=== PATIENT | male | born 1965 | race Caucasian/White ===

== ENCOUNTER 2016-10-30 16:07 | Emergency (ER) | payer OTHER ==
[2016-10-30] MEDS ORDERED: Ketorolac 60 MG/2 ML SDV IM ONE (16:37)
--- NOTE | 2016-10-30 16:42 | EDM.PDOC ---
ED HPI GENERAL MEDICAL PROBLEM - General Chief Complaint: Back Pain or Injury Stated Complaint: PT FELL AT WORK AND HURT BACK Time Seen by Provider: 10/30/16 16:32 - History of Present Illness INITIAL COMMENTS - FREE TEXT/NARRATIVE: HISTORY AND PHYSICAL: History of present illness: The patient is a 51-year-old male who presents with complaints of pain to his right thoracic and lumbar back area after she sustained a fall today at work. According to the patient he was about 10 feet in the air on some scaffolding and he lost his footing and fell down into an area of cement blocks impacting the blocks. The patient did not pass out or blackout and has no head or neck pain but complains of pain to the right of the midline in the thoracic and lumbar area and the lower right ribs. He is not short of breath and has no abdominal complaints he has no hip or pelvis pain and has not been nauseated or vomited. He has no extremity complaints and no weakness or tingling in any of his extremities. Patient did not take anything for pain before coming here. He also says he scraped his right elbow but it is not particularly painful. Review of systems: As per history of present illness and below otherwise all systems reviewed and negative. Past medical history: As per history of present illness and as reviewed below otherwise noncontributory. Surgical history: As per history of present illness and as reviewed below otherwise noncontributory. Social history: No reported history of drug or alcohol abuse. Family history: As per history of present illness and as reviewed below otherwise noncontributory. Physical exam: Gen.: Well-developed well-nourished man who is nontoxic and ambulated into the ED without distress HEENT: Atraumatic, normocephalic, pupils reactive, negative for conjunctival pallor or scleral icterus, mucous membranes moist, throat clear, neck supple, nontender, trachea midline. There are no midline step-offs in his defects of the cervical spine Lungs: Clear to auscultation, breath sounds equal bilaterally, chest nontender. No worker breathing or sensory muscle use Heart: S1S2, regular rate and rhythm no overt murmurs Abdomen: Soft, nondistended, nontender. NABS Negative for costovertebral tenderness. Pelvis: Stable nontender. Genitourinary: Deferred. Rectal: Deferred. Extremities: Atraumatic with full range of motion without any bony defects, there is a superficial abrasion to the right elbow without soft tissue swelling tenderness or defects, negative for cords or calf pain. Neurovascular unremarkable. Neuro: Awake, alert, oriented. Cranial nerves II through XII unremarkable. Cerebellum unremarkable. Motor and sensory unremarkable throughout. Exam nonfocal. Back: There are no midline step-offs in his defects of the thoracic or lumbar spine but just to the right of the midline and there is discrete tenderness in the lower thoracic and upper lumbar spine and paraspinal area without any ecchymosis abrasions or soft tissue swelling. There is also some mild tenderness in the posterior lower ribs on the right without crepitus defects or deformities. There is no posterior pelvis tenderness Diagnostics: UA right ribs x-ray with chest, the CT of the thoracic and lumbar spine Therapeutics: Toradol Impression: Fall with right thoracic and lumbar back contusion Definitive disposition and diagnosis as appropriate pending reevaluation and review of above. lower back Pain Score (Numeric/FACES): 10 - Related Data Allergies Allergy/AdvReac Type Severity Reaction Status Date / Time No Known Allergies Allergy Verified 10/30/16 16:30 Home Meds: Home Meds Antihypertensive Medicine 10/30/16 [History] ED ROS GENERAL - Review of Systems Review Of Systems: ROS reveals no pertinent complaints other than HPI. ED EXAM, GENERAL - Physical Exam Exam: See Below (See dictation) Course - Vital Signs Last Recorded V/S: Last Vital Signs Temp 36.6 C 10/30/16 16:34 Pulse 70 10/30/16 16:34 Resp 18 10/30/16 16:34 BP 140/86 10/30/16 16:34 Pulse Ox 96 10/30/16 16:34 - Orders/Labs/Meds Orders: Active Orders 24 hr Category Date Time Status Lumbar Spine wo Cont [CT] Stat Exams 10/30/16 16:37 Taken Ribs 2V w Chest Rt [CR] Stat Exams 10/30/16 16:37 Taken Thoracic Spine wo Cont [CT] Stat Exams 10/30/16 16:37 Taken Labs: Laboratory Tests 10/30/16 Range/Units 16:36 Urine Color YELLOW Urine Appearance CLEAR Urine pH 6.0 (5.0-8.0) Ur Specific Black >= 1.030 (1.001-1.035) Urine Protein NEGATIVE (NEGATIVE) mg/dL Urine Glucose (UA) NEGATIVE (NEGATIVE) mg/dL Urine Ketones NEGATIVE (NEGATIVE) mg/dL Urine Occult Blood NEGATIVE (NEGATIVE) Urine Nitrite NEGATIVE (NEGATIVE) Urine Bilirubin NEGATIVE (NEGATIVE) Urine Urobilinogen 0.2 (<2.0) EU/dL Ur Leukocyte Esterase NEGATIVE (NEGATIVE) Urine RBC 0-2 (0-2/HPF) Urine WBC 2-5 (0-5/HPF) Ur Epithelial Cells FEW (NONE-FEW) Urine Bacteria FEW (NEGATIVE) Meds: Medications Discontinued Medications Generic Name Dose Route Start Last Admin Trade Name Juliet PRN Reason Stop Dose Admin Ketorolac Tromethamine 60 mg 10/30/16 16:37 10/30/16 16:43 Toradol IM 10/30/16 16:38 60 mg ONETIME ONE Administration Departure - Departure Time of Disposition: 18:02 Disposition: Home, Self-Care 01 Condition: Good Clinical Impression: Fall Qualifiers: Encounter type: initial encounter Qualified Code(s): W19.XXXA - Unspecified fall, initial encounter Back contusion Qualifiers: Encounter type: initial encounter Laterality: right Qualified Code(s): S20.221A - Contusion of right back wall of thorax, initial encounter - Discharge Information Forms: ED Department Discharge Additional Instructions: The following information is given to patients seen in the emergency department who are being discharged to home. This information is to outline your options for follow-up care. We provide all patients seen in our emergency department with a follow-up referral. The need for follow-up, as well as the timing and circumstances, are variable depending upon the specifics of your emergency department visit. If you don't have a primary care physician on staff, we will provide you with a referral. We always advise you to contact your personal physician following an emergency department visit to inform them of the circumstance of the visit and for follow-up with them and/or the need for any referrals to a consulting specialist. The emergency department will also refer you to a specialist when appropriate. This referral assures that you have the opportunity for followup care with a specialist. All of these measure are taken in an effort to provide you with optimal care, which includes your followup. Under all circumstances we always encourage you to contact your private physician who remains a resource for coordinating your care. When calling for followup care, please make the office aware that this follow-up is from your recent emergency room visit. If for any reason you are refused follow-up, please contact the [facility] emergency department at and ask to speak to the emergency department charge nurse. [facility] Primary care- Internal Medicine and Family [address] [address] [address] on areas of soreness rest and use medications as prescribed. Please call and follow-up in the clinic for further care and evaluation and return here as needed and as discussed. Expect more pain over the next 1-2 days which should improve afterwards - My Orders Last 24 Hours: My Active Orders 10/30/16 16:37 Lumbar Spine wo Cont [CT] Stat Ribs 2V w Chest Rt [CR] Stat Thoracic Spine wo Cont [CT] Stat - Assessment/Plan Last 24 Hours: My Active Orders 10/30/16 16:37 Lumbar Spine wo Cont [CT] Stat Ribs 2V w Chest Rt [CR] Stat Thoracic Spine wo Cont [CT] Stat
[2016-10-30 18:16] VITALS: BP 146/83
--- NOTE | 2016-11-02 09:57 | CT ---
EXAM DATE: 10/30/16 PATIENT'S AGE: 51 Patient: KAMERNO SARAVIA Facility: [place], [place] Site . Site : 1965 Study: CT Spine Thoracic WO CONT [id number]/4/2017 5:06:30 PM Ordering Physician: Doctor Soriano Final Report: INDICATION: Trauma. Midback pain TECHNIQUE: Non-contrast axial CT of the thoracic spine with coronal and sagittal reconstructions. No comparisons. FINDINGS: The overall stature and alignment of the thoracic spine is within normal limits. No evidence of bony fragments narrowing the central canal or visualized neural foramina. IMPRESSION: No radiographic evidence of acute osseous injury. Dictated by Jose Francisco Ruiz MD @ 10/30/2016 5:40:57 PM Dictated by: Jose Francisco Ruiz MD @ 10/30/2016 17:41:08 (Electronic Signature) Report Signed by Proxy. FREDERICK
--- NOTE | 2016-11-02 09:58 | CT ---
EXAM DATE: 10/30/16 PATIENT'S AGE: 51 Patient: KAMERON SARAVIA Facility: [place], [place] Site . Site : 1965 Study: CT Spine Lumbar WO CONT [id number]/4/2017 5:12:55 PM Ordering Physician: Doctor Soriano Final Report: Indication: Low back pain. Trauma Technique: Noncontrast axial CT of the lumbar spine with coronal and sagittal reformats are provided. No comparisons. Findings: The overall stature, alignment of the lumbar spine is within normal limits. No convincing evidence of suspicious bony fragments narrowing the central canal or neural foramina. Moderate bilateral L5-S1 foraminal narrowing due to underlying degenerative changes. Impression: 1. No convincing radiographic evidence of acute osseous injury. 2. Moderate degenerative changes at L5-S1. Dictated by Jose Francisco Ruiz MD @ 10/30/2016 5:39:16 PM Dictated by: Jose Francisco Ruiz MD @ 10/30/2016 17:39:25 (Electronic Signature) Report Signed by Proxy. FREDERICK
--- NOTE | 2016-11-02 09:59 | CR ---
EXAM DATE: 10/30/16 PATIENT'S AGE: 51 Patient: KAMERON SARAVIA Facility: [place], [place] Site . Site : 1965 Study: XRay Chest Right Ribs [id number]/4/2017 5:18:50 PM Ordering Physician: Doctor Soriano Final Report: INDICATION: TRAUMA TECHNIQUE: Chest 1 view and right rib series COMPARISON: None FINDINGS: Cardiovascular and mediastinum: Heart size and vasculature are normal in caliber and appearance. Mediastinum is within normal limits. Lungs and pleural space: No focal consolidation. No sign of pleural effusion. No pneumothorax. Bones and soft tissues: No significant findings. IMPRESSION: No acute cardiopulmonary disease or right-sided rib abnormality. Dictated by Steven Wallace MD @ 10/30/2016 5:54:04 PM Dictated by: Steven Wallace MD @ 10/30/2016 17:54:11 (Electronic Signature) Report Signed by Proxy. E.J. NOBLE HOSPITALCamelia
== END 2016-10-30 18:14 | disposition home or self-care (01) ==
LOC: MW.ED 16:07
DX: S30.0XXA Contusion of lower back and pelvis, initial encounter (principal); S20.221A Contusion of right back wall of thorax, initial encounter; W17.89XA Other fall from one level to another, initial encounter
CPT/HCPCS: 71101; 72128; 72131; 81001; 96372; 99284; J1885